=== PATIENT | male | born 1960 | race Caucasian/White ===

== ENCOUNTER 2023-01-03 18:15 | Emergency (ER) | payer OTHER ==
[~2023-01-03] VITALS: Ht 182.9 cm; Wt 99.8 kg
[~2023-01-03 18:15] MED LIST: BUPR150T5 PO; VILA40TA PO
[2023-01-03] MEDS ORDERED: ALPR0.25 PO (18:58)
[2023-01-03] MEDS ORDERED: ACETAMINOPHEN ES 500 MG TABLET PO ONE (20:00)
[2023-01-03] MEDS ORDERED: ACETAMINOPHEN ES 500 MG TABLET ONE (20:06)
[2023-01-04 01:00] VITALS: BP 154/92; TEMP 98.8; O2SAT 98
== END 2023-01-03 22:20 | disposition home or self-care (01) ==
LOC: ER 18:17
DX: G44.209 Tension-type headache, unspecified, not intractable (principal); F41.9 Anxiety disorder, unspecified; F32.A Depression, unspecified; Z79.899 Other long term (current) drug therapy; Z88.0 Allergy status to penicillin
CPT/HCPCS: 70450; A4606; A4663; A9150

== ENCOUNTER 2024-10-22 09:23 | Emergency (ER) | payer OTHER ==
[~2024-10-22] VITALS: Ht 182.9 cm; Wt 99.8 kg
[~2024-10-22 09:23] MED LIST changes: +ALPR0.25 PO
[2024-10-22 09:28] VITALS: BP 126/67; O2SAT 95
[2024-10-22] MEDS ORDERED: ALBU18HF2 INH (10:55)
[2024-10-22] MEDS ORDERED: PRED20TA PO (10:55)
== END 2024-10-22 11:07 | disposition home or self-care (01) ==
LOC: ER 09:23
DX: J20.9 Acute bronchitis, unspecified (principal); J06.9 Acute upper respiratory infection, unspecified; F41.9 Anxiety disorder, unspecified; F32.A Depression, unspecified; G47.30 Sleep apnea, unspecified; Z79.899 Other long term (current) drug therapy; Z88.0 Allergy status to penicillin; Z88.7 Allergy status to serum and vaccine; Z20.822 Contact with and (suspected) exposure to COVID-19
CPT/HCPCS: 71045; A4606; A4663